=== PATIENT | female | born 1975 ===

== ENCOUNTER 2023-12-24 12:41 | Outpatient (CLI) | payer OTHER, SELFPAY ==
--- NOTE | ~2023-12-24 | MR_ITS ---
EXAMINATION: MR hip LT wo con DATE: 12/24/2023 13:59 INDICATION: Posterior left hip pain TECHNIQUE: Magnetic resonance imaging (MRI) of the left hip was performed without intravenous contra st. Sequences included full-field axial PD-weighted FS FSE and T1-weighted FSE, coronal of the pelvis with PD-weighted FS FSE, T2-weighted FSE and T1-weighted FSE, small field of view of the left hip w ith axial PD-weighted FS FSE, sagittal PD-weighted FS FSE, coronal PD-weighted FS FSE and coronal T2 weighted FSE. Additional radial T1-weighted FGR oriented orthogonal to the acetabular rim were obtai mercy for evaluation of the labrum. COMPARISON: None FINDINGS: Bones/labrum/cartilage: Alignment is normal. No fracture, avascular necrosis or pathologic marrow replacing process. Severe spondylosis at L4-L5. Mild left hip osteoarthritis with nonuniform mild partial-thickness cartilage l oss with smooth chondral surface. There is a small shallow tear at the base of the 11:00-11:30 positi on of the superolateral left acetabular labrum. Fluid: Symmetric physiologic amount of fluid within both hip joints. Soft tissues: Normal and symmetric muscle bulk and signal in the pelvis and visualized proximal thighs. There is re latively symmetric mild bilateral trochanteric bursitis and mild tendinopathy without discrete tear o f the bilateral gluteus minimus tendons. The bilateral gluteus medius and april, iliopsoas and prox imal hamstring tendons are normal. 7 mm nabothian cyst at the cervix. Limited evaluation of visceral organs of the pelvis is unremarkable. No pathologically enlarged pelvic/inguinal lymphadenopathy. IMPRESSION: 1. Mild left hip osteoarthritis with small shallow tear at the base of the superolateral left acetabu lar labrum. 2. Relatively symmetric mild bilateral trochanteric bursitis and mild tendinopathy without discrete t ears of the bilateral gluteus minimus tendons. Reviewed, dictated and finalized at location B. IMPRESSION: 1. Mild left hip osteoarthritis with small shallow tear at the base of the supe rolateral left acetabular labrum. 2. Relatively symmetric mild bilateral trochanteric bursitis and mild tendinopa thy without discrete tears of the bilateral gluteus minimus tendons.
== END 2023-12-24 12:42 ==
PROVIDERS: PCP Orthopaedic Surgery; Visit Provider Orthopaedic Surgery
DX: M16.12 Unilateral primary osteoarthritis, left hip (principal)
CPT/HCPCS: 73721